=== PATIENT | female | born 1975 | race Asian ===

== ENCOUNTER 2020-05-12 09:27 | Outpatient (CLI) | payer BC | END 2020-05-12 09:28 | disposition home or self-care (01) | LOC: CSHMAMMO 09:27 | PROVIDERS: ATTEND Obstetrics & Gynecology | DX: Z12.31 Encounter for screening mammogram for malignant neoplasm of breast (principal) | CPT/HCPCS: 77063; 77067 ==

== ENCOUNTER 2020-06-08 13:34 | Outpatient (CLI) | payer BC | END 2020-06-08 13:35 | disposition home or self-care (01) | LOC: CSHMRI 13:34 | PROVIDERS: ATTEND Internal Medicine | DX: R51.9 Headache, unspecified (principal); R93.0 Abnormal findings on diagnostic imaging of skull and head, not elsewhere classified | CPT/HCPCS: 70544 ==

== ENCOUNTER 2020-06-16 12:34 | Outpatient (CLI) | payer BC | END 2020-06-16 12:35 | disposition home or self-care (01) | LOC: CSHCT 12:34 | PROVIDERS: ATTEND Internal Medicine | DX: H83.8X9 Other specified diseases of inner ear, unspecified ear (principal) | CPT/HCPCS: 70450 ==

== ENCOUNTER 2021-07-03 09:42 | Outpatient (CLI) | payer BC | END 2021-07-03 09:43 | disposition home or self-care (01) | LOC: CSHMAMMO 09:42 | PROVIDERS: ATTEND Internal Medicine | DX: Z12.31 Encounter for screening mammogram for malignant neoplasm of breast (principal) | CPT/HCPCS: 77063; 77067 ==